=== PATIENT | female | born 1990 | race Caucasian/White ===

== ENCOUNTER → 2020-01-11 09:12 | Outpatient (CLI) | payer MEDICAID, SELFPAY ==
[2016-10-15 13:46] VITALS: BMI 28.0
[2020-01-11 09:27] LABS: Absolute Lymphocyte Count 1.41 X10^3/uL (0.83-4.51); Absolute Neutrophil Count 2.6 X10^3/uL (2.0-7.7); Eosinophil# 0.05 X10^3/uL; Eosinophils% 1.2 % (0-5); Hematocrit 39.8 % (37-47); Hemoglobin 12.5 g/dL (12.0-15.0); Lymphocyte # 1.41 X10^3/ul (4.0); Lymphocyte % 32.7 % (19-41); Mean Corp Hgb Conc 31.4 g/dL (32-36); Mean Corpuscular Hgb 26.8 pg (27.0-32.0); Mean Corpuscular Volume 85.2 fL (81-99); Mean Platelet Vol. 11.8 fl (6.2-12.0); Monocyte# 0.24 X10^3/uL; Monocyte% 5.6 % (0-10); NRBC Flagged by Analyzer 0 % (0-5); Neutrophil % 60.3 % (47-70); Platelet Count 186 K/mm3 (150-450); RBC Distribution Width CV 14.4 % (11.6-14.6); RBC Distribution Width SD 44.8 fl (35.1-43.9); Red Blood Count 4.67 M/mm3 (4.2-5.4); White Blood Count 4.3 K/mm3 (4.4-11.0)
[2020-01-11 09:48] LABS: Thyroid Stim Hormone (TSH) 2.94 uIU/mL (0.358-3.74)
[2020-01-13 16:03] LABS: HPV Reflexed? NOT INDICATED
== END ==
PROVIDERS: PCP Family Medicine; Referring Provider Nurse Practitioner Women's Health; Visit Provider Nurse Practitioner Women's Health
DX: Z12.4 Encounter for screening for malignant neoplasm of cervix (principal); N92.1 Excessive and frequent menstruation with irregular cycle
CPT/HCPCS: 84443; 85025; 88175; G0145

== ENCOUNTER → 2020-01-20 14:33 | Outpatient (CLI) | payer MEDICAID, SELFPAY ==
[2020-01-11 10:52] VITALS: BMI 28.0
--- NOTE | 2020-01-20 14:40 | US_ITS ---
STUDY: ULTRASOUND OF THE FEMALE PELVIS - COMPLETE REASON FOR EXAM: Female, 29 years old. M Menorrhagia US - Pelvic, Tvag LMP: 01/06/2020. TECHNIQUE: Transabdominal and Transvaginal TECHNICAL QUALITY: Adequate. COMPARISON: None. FINDINGS: The uterus is anteverted and is in a midline position. The uterus measures 9.3 x 4.5 x 4.2 cm. Normal uterine cervix. The endometrium measures 12.0 mm in thickness, and is . There is no demonstrated endometrial mass. There is no demonstrated myometrial mass. I.U.D. - The patient does not have an I.U.D. The right ovary is visualized. The right ovary measures 2.7 x 2.9 x 2.1 cm. There are multiple follicles of the right ovary, largest measuring 2.1 x 2.2 x 1.3 cyst. There is no visualized right adnexal mass or complex lesion. There is normal arterial and normal venous vascularity. The left ovary is visualized. The left ovary measures 2.1 x 1.9 x 1.1 cm. There are several follicles of the left ovary without a dominant cyst. There is no visualized left adnexal mass or complex lesion. There is normal arterial and normal venous vascularity. There is no fluid in the cul-de-sac. The pre void volume of the bladder was 205.2 ml. US/Pelvic (Non ) IMPRESSION: Normal female pelvis ultrasound. Electronically Signed: Diana Vargas MD at 1:35 EDT , Service support ,
--- NOTE | 2020-01-20 14:40 | US_ITS ---
STUDY: ULTRASOUND OF THE FEMALE PELVIS - COMPLETE REASON FOR EXAM: Female, 29 years old. M Menorrhagia US - Pelvic, Tvag LMP: 01/06/2020. TECHNIQUE: Transabdominal and Transvaginal TECHNICAL QUALITY: Adequate. COMPARISON: None. FINDINGS: The uterus is anteverted and is in a midline position. The uterus measures 9.3 x 4.5 x 4.2 cm. Normal uterine cervix. The endometrium measures 12.0 mm in thickness, and is . There is no demonstrated endometrial mass. There is no demonstrated myometrial mass. I.U.D. - The patient does not have an I.U.D. The right ovary is visualized. The right ovary measures 2.7 x 2.9 x 2.1 cm. There are multiple follicles of the right ovary, largest measuring 2.1 x 2.2 x 1.3 cyst. There is no visualized right adnexal mass or complex lesion. There is normal arterial and normal venous vascularity. The left ovary is visualized. The left ovary measures 2.1 x 1.9 x 1.1 cm. There are several follicles of the left ovary without a dominant cyst. There is no visualized left adnexal mass or complex lesion. There is normal arterial and normal venous vascularity. There is no fluid in the cul-de-sac. The pre void volume of the bladder was 205.2 ml. US/Transvaginal Non- IMPRESSION: Normal female pelvis ultrasound. Electronically Signed: Diana Vargas MD at 1:35 EDT , Service support ,
== END ==
PROVIDERS: PCP Family Medicine; Referring Provider Nurse Practitioner Women's Health; Visit Provider Nurse Practitioner Women's Health
DX: N92.0 Excessive and frequent menstruation with regular cycle (principal)
CPT/HCPCS: 76830; 76856

== ENCOUNTER → 2021-03-07 12:28 | Outpatient (CLI) | payer MEDICAID, SELFPAY ==
[2021-03-07 10:03] VITALS: BMI 22.6
== END ==
PROVIDERS: PCP Family Medicine; Referring Provider Nurse Practitioner Women's Health; Visit Provider Nurse Practitioner Women's Health
DX: N76.0 Acute vaginitis (principal)
CPT/HCPCS: 87070; 87205